=== PATIENT | male | born 1965 | race African-American/Black ===

== ENCOUNTER → 2016-05-03 | Outpatient (CLI) | payer OTHER ==
[~2016-05-03] MED LIST: NAPROXEN500 MG PO
== END | disposition home or self-care (01) ==
LOC: CDC 12:24
DX: R94.31 Abnormal electrocardiogram [ECG] [EKG] (principal); M67.431 Ganglion, right wrist; M25.531 Pain in right wrist
CPT/HCPCS: 93000